=== PATIENT | female | born 1955 | race Hispanic/Latino ===

== ENCOUNTER 2019-02-22 14:53 | Outpatient (CLI) | payer OTHER | END 2019-02-22 14:54 | disposition home or self-care (01) | LOC: LABHHL 14:53 | PROVIDERS: ATTEND Surgery | DX: N63.14 Unspecified lump in the right breast, lower inner quadrant (principal) | CPT/HCPCS: 88112 ==

== ENCOUNTER 2019-03-03 13:00 | Outpatient (CLI) | payer OTHER ==
--- NOTE | 2019-03-04 10:42 | Mammography Report ---
STEREOTACTIC VACUUM ASSISTED BIOPSY WITH CLIP PLACEMENT RIGHT BREAST: 03/03/19 13:00:00 CLINICAL: Right breast mass with calcifications. COMPARISON:02/22/19 mammogram FINDINGS: Consent for the procedure was obtained. The previously described mass with associated calcifications was targeted with stereotactic guidance. The skin was prepped with Betadine and anesthetized with 1% lidocaine. 2% lidocaine with epinephrine was injected for deeper anesthesia. 8 gauge Mammotome biopsy was performed from a medial approach through a small dermatotomy. Prefire and post-fire images demonstrated satisfactory positioning of the probe. Samples were obtained around the clock face. A specimen radiograph confirmed satisfactory sampling with removal of portions of a mass and solar sales representative and assessor calcifications. A moderate amount of hemorrhage was observed at the time of the biopsy. A clip was placed at the biopsy site and the deployment was confirmed with an image. The probe was removed and hemostasis was achieved with pressure to the biopsy site. A sterile dressing with an Jayden wrap was applied. The patient tolerated the procedure well and there were no apparent complications. Two view mammogram demonstrated concordant position of the biopsy clip and apparent removal of at least some calcifications and at least portions of the nodule. IMPRESSION: Uncomplicated stereotactic biopsy with clip placement right breast.
--- NOTE | 2019-03-04 10:44 | Mammography Report ---
RIGHT DIGITAL DIAGNOSTIC MAMMOGRAM: 03/03/19 13:00:00 CLINICAL: For clip placement immediately status post stereotactic biopsy. COMPARISON:02/22/19 FINDINGS: A biopsy clip is now identified at the site of the previously identified nodule and calcifications.A small hemorrhage is apparent on the lateral view. No distinct nodule remains and some if not all of the calcifications have been removed. IMPRESSION: Concordant clip placement status post stereotactic biopsy. BI-RADS CATEGORY: 4--Suspicious Pathology pending.
== END 2019-03-03 13:01 | disposition home or self-care (01) ==
LOC: SPVWC 13:00
PROVIDERS: ATTEND Surgery
DX: N60.91 Unspecified benign mammary dysplasia of right breast (principal); N60.11 Diffuse cystic mastopathy of right breast; N64.1 Fat necrosis of breast; R92.1 Mammographic calcification found on diagnostic imaging of breast
CPT/HCPCS: 19081; 77065; 88305; 88342; A4648

== ENCOUNTER 2019-04-06 06:23 | Day surgery (SDC) | payer OTHER ==
[~2019-04-06 06:23] MED LIST: ANCEF/STERILE WATER 2 GM/20 ML 2 GM/20 ML SYRINGE IV NR
[2019-04-06] MEDS ORDERED: NACL BACTERIOSTATIC INFILTRATI ONE (06:39)
--- NOTE | 2019-04-06 07:25 | Anesthesia Consultation ---
Anesthesia Consult and Med Hx Date of service: 04/06/19 - Airway Anesthetic Teeth Evaluation: Good ROM Head & Neck: Adequate Mental/Hyoid Distance: Adequate Mallampati Class: Class II Intubation Access Assessment: Probably Good - Pulmonary Exam CTA: Yes - Cardiac Exam Cardiac Exam: RRR - Pre-Operative Health Status ASA Pre-Surgery Classification: ASA3 Proposed Anesthetic Plan: General - Pulmonary Hx Smoking: Yes (wakes up with cough every morning; ordered albuterol neb) Hx Asthma: No Hx Respiratory Symptoms: Yes SOB: No COPD: No Home Oxygen Therapy: No Hx Sleep Apnea: No - Cardiovascular System Hx Hypertension: Yes Hx Coronary Artery Disease: No Hx Cardia Arrhythmia: No Hx Peripheral Vascular Disease: No - Central Nervous System Hx Neuromuscular Disorder: No Hx Seizures: No Hx Back Pain: No Hx Psychiatric Problems: No - Gastrointestinal Hx Gastroesophageal Reflux Disease: No - Endocrine Hx Renal Disease: No Hx Liver Disease: No Hx Insulin Dependent Diabetes: No Hx Non-Insulin Dependent Diabetes: Yes ("prediabetic, diet-controlled" ) Hx Thyroid Disease: No - Hematic Hx Anemia: No - Other Systems Hx Alcohol Use: No Hx Substance Use: No Hx Obesity: Yes - Additional Comments Anesthesia Medical History Comments: No GAC, No FHAC
[2019-04-06] MEDS ORDERED: VERSED IV NR (07:26)
--- NOTE | 2019-04-06 07:26 | Anesthesia Day of Surgery ---
Anesthesia Day of Surgery - Day of Surgery Patient Examined: Yes Patient H&P Reviewed: Yes Patient is NPO: Yes ([id number]) Beta Blockers: No Cardiac Clearance: No Pulmonary Clearance: No
[2019-04-06] MEDS ORDERED: PROVENTIL IH NR (07:30)
[2019-04-06] MEDS ORDERED: DILAUDID IV PRN (07:33)
[2019-04-06] MEDS ORDERED: XYLOCAINE 1% 20 mL ONE (07:46)
[2019-04-06] MEDS ORDERED: LACTATED RINGERS 1,000 ML IV SCH (08:00)
[2019-04-06] MEDS ORDERED: XYLOCAINE 1% 20 mL INFILTRATI ONE ×2 (08:51→09:44)
[2019-04-06] MEDS ORDERED: DIPRIVAN 10 MG/ML IV ONE (09:00)
[2019-04-06] MEDS ORDERED: SUBLIMAZE ONE (09:00)
--- NOTE | 2019-04-06 09:02 | Mammography Report ---
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 COMPARISON: 03/03/19 FINDINGS: Using mammographic guidance, 1% lidocaine local anesthesia and sterile technique, a 3.5-cm Hackett needle with a hookwire was placed from a medial approach to localize a biopsy clip. The hookwire was deployed and the needle was removed. Satisfactory placement was confirmed by orthogonal views. The patient tolerated the procedure well and there were no apparent complications. IMPRESSION: Uncomplicated hookwire placement right breast.
[2019-04-06] MEDS ORDERED: WATER FOR IRRIG STERILE IR ONE (09:44)
[2019-04-06] MEDS ORDERED: MARCAINE 0.25% INFILTRATI ONE (09:44)
[2019-04-06] MEDS ORDERED: XYLOCAINE MPF 2% ONE (10:27)
[2019-04-06] MEDS ORDERED: ZOFRAN ONE (10:27)
[2019-04-06] MEDS ORDERED: DECADRON ONE (10:27)
--- NOTE | 2019-04-06 11:13 | Short Stay Summary ---
Short Stay Documentation Date of service: 04/06/19 - History H&P: obtained from office - Allergies and Medications Current Medications: Allergies meperidine [From Demerol] Allergy (Verified 04/02/19 14:33) Unknown ofloxacin [From Floxin] Allergy (Verified 04/02/19 14:33) Unknown Home Medications Medication Instructions Recorded Confirmed Last Taken Type Aspirin EC 81 mg PO QDAY 04/02/19 04/06/19 1 Month Ago History ~03/07/19 Chlorthalidone [Thalitone] 25 mg PO QDAY 04/02/19 04/02/19 04/05/19 History FLUoxetine [PROzac] 20 mg PO QDAY 04/02/19 04/02/19 04/05/19 History Fenofibrate [Tricor] 145 mg PO QDAY 04/02/19 04/02/19 04/05/19 History Levothyroxine [Synthroid] 50 mcg PO QAM 04/02/19 04/02/19 04/05/19 History Rosuvastatin Calcium [Crestor] 20 mg PO QHS 04/02/19 04/02/19 04/05/19 History buPROPion SR [Wellbutrin Sr] 150 mg PO BID 04/02/19 04/02/19 04/05/19 History HYDROcodone/APAP 5-325 [[place] 1 each PO Q6HR PRN #20 tablet 04/06/19 Unknown Rx 5/325] Active Medications Albuterol (Proventil) 2.5 mg IH PREOP NR Stop: 04/06/19 16:00 Last Admin: 04/06/19 08:24 Dose: 2.5 mg Documented by: Hydromorphone HCl (Dilaudid) 0.5 mg IV Q10MIN PRN PRN Reason: Pain , Severe (7-10) Stop: 04/06/19 16:00 Cefazolin Sodium (Ancef/Sterile Water 2 Gm/20 Ml) 2 gm in 20 mls @ 80 mls/hr IV PREOP NR; Protocol Stop: 04/06/19 23:59 Lactated Ringer's (Lactated Ringers) 1,000 mls @ 100 mls/hr IV DIRECT INDIRA Last Admin: 04/06/19 08:27 Dose: 100 mls/hr Documented by: Midazolam HCl (Versed) 2 mg IV ONCE NR Stop: 04/06/19 16:00 Last Admin: 04/06/19 08:38 Dose: 2 mg Documented by: - Brief post op/procedure progress note Date of procedure: 04/06/19 Pre-op diagnosis: Right breast ADH Post-op diagnosis: same Procedure: Right needle localization excisional biopsy Anesthesia: GETA Findings: wire and clip present Surgeon: ASAEL RICE Estimated blood loss: minimal Pathology: list (right breast mass) Specimen disposition: to lab Condition: stable - Disposition Condition at discharge: Good Disposition: DC- TO HOME OR SELFCARE Short Stay Discharge Plan Activity: other (no heavy lifting) Diet: regular Wound: keep clean and dry (may shower in 48 hours; no baths, pools or lakes; do not rub or scrub incision) Follow up with: HAKAN SYLVESTER MD [Primary Care Provider] - 7 Days ASAEL RICE MD [Staff Physician] - 7 Days Prescriptions: HYDROcodone/APAP 5-325 [[place] 5/325] 1 each PO Q6HR PRN #20 tablet PRN Reason: Pain
--- NOTE | 2019-04-06 11:18 | Operative Report ---
Operative Report Operative Report: Operative Report: Date of Service: April 06, 2019 Preoperative diagnosis: Right breast mass with ADH Postoperative diagnosis: Same Procedure: Right breast mass excisional biopsy Anesthesia: General Surgeon: Monie No M.D. Findings: Right breast excisional biopsy with clip and wire present Complications: None Drains: None Estimated blood loss: Minimal Disposition: PACU in good condition Indication for operative procedure: This is a 63-year-old lady with recent abn ormal right mammogram and breast MRI. RPatient also high risk for breast cancer given family history. Recent stereotactic biopsy with findings of ADH. Recommendations are for excisional biopsy to rule out malignancy. Patient wished to proceed with the above procedure. The patient was procedure in detail: Radiology placed wire at location of clip placement. The patient was taken to the operating room and was laid supine. General anesthesia was administered. The right breast wire was identified. The right breast was prepped and draped in the normal sterile operative fashion. Timeout was performed. A breast incision around the 3:00 position was made with a 15 blade knife with dissection taken down to the subcutaneous tissues. The wire was removed medially from the skin. The medial was then raised taken down posteriorly followed by raising of the lateral, superior and inferior flaps with dissection taken down posteriorly. The area of concern was then removed posteriorly with the aid of the bovie cautery. The area of concern was not encountered. The specimen was sent to pathology and radiology. Radiograph specimen with clip and wire present. Hemostasis was then obtained using the Bovie cautery. The breast cavity was irrigated and suctioned. The deep breast tissues were approximated and closed using interrupted 3-0 Vicryl and skin brought together and closed using a running 4-0 Monocryl followed by skin affix.
[2019-04-06 12:02] VITALS: BP 126/68
[2019-04-06] MEDS ORDERED: NORCO 5/325 PO PRN (12:30)
--- NOTE | 2019-04-06 12:30 | Mammography Report ---
SPECIMEN RADIOGRAPH RIGHT BREAST: 04/06/19 06:23:00 CLINICAL: Surgical excision of a lesion with atypia. FINDINGS: The targeted lesion with a biopsy clip and a hookwire are identified within the specimen. IMPRESSION: Excision of the targeted lesion.
== END 2019-04-06 12:40 | disposition home or self-care (01) ==
LOC: OR 06:23
PROVIDERS: ATTEND Surgery
DX: D05.11 Intraductal carcinoma in situ of right breast (principal); D24.1 Benign neoplasm of right breast; E78.00 Pure hypercholesterolemia, unspecified; I10 Essential (primary) hypertension; E66.9 Obesity, unspecified; E11.9 Type 2 diabetes mellitus without complications; Z68.34 Body mass index [BMI] 34.0-34.9, adult; Z90.710 Acquired absence of both cervix and uterus; Z87.442 Personal history of urinary calculi; Z98.890 Other specified postprocedural states; Z80.3 Family history of malignant neoplasm of breast; Z87.891 Personal history of nicotine dependence; Z79.82 Long term (current) use of aspirin; Z80.8 Family history of malignant neoplasm of other organs or systems; Z88.8 Allergy status to other drugs, medicaments and biological substances
CPT/HCPCS: 19125; 19281; 76098; 82962; 88307; 88341; 88342; J0690; J1100; J2250; J2405; J2704; J3010; J7120

== ENCOUNTER 2019-04-28 06:02 | Day surgery (SDC) | payer OTHER ==
[2019-04-27 09:34] LABS: Basophils # (Auto) 0.1 K/mm3 (0.0-0.1); Basophils % (Auto) 1.2 % (0.0-1.8); Eosinophils # (Auto) 0.1 K/mm3 (0.0-0.4); Eosinophils % (Auto) 1.7 % (0.0-4.3); Hematocrit 39.2 % (30.3-42.9); Hemoglobin 13.3 gm/dl (10.1-14.3); Lymphocytes # (Auto) 2.7 K/mm3 (1.2-5.4); Lymphocytes % (Auto) 43.7 % (13.4-35.0); Mean Corpuscular HGB Conc 34 % (30-34); Mean Corpuscular Volume 86 fl (79-97); Monocytes # (Auto) 0.6 K/mm3 (0.0-0.8); Monocytes % (Auto) 9.3 % (0.0-7.3); Platelet Count 242 K/mm3 (140-440); Red Blood Count 4.58 M/mm3 (3.65-5.03)
--- NOTE | 2019-04-27 09:39 | Anesthesia Consultation ---
Anesthesia Consult and Med Hx Date of service: 04/27/19 - Airway Anesthetic Teeth Evaluation: Good ROM Head & Neck: Adequate Mental/Hyoid Distance: Adequate Mallampati Class: Class II Intubation Access Assessment: Probably Good - Pulmonary Exam CTA: Yes - Cardiac Exam Cardiac Exam: RRR - Pre-Operative Health Status ASA Pre-Surgery Classification: ASA3 Proposed Anesthetic Plan: General Nerve Block: PEC block - Pulmonary Hx Smoking: Yes (FOR OVER 30 YRS; QUIT 2014) Hx Asthma: No Hx Respiratory Symptoms: No COPD: No Hx Sleep Apnea: No - Cardiovascular System Hx Hypertension: Yes Hx Heart Attack/AMI: No Hx Percutaneous Transluminal Coronary Angioplasty (PTCA): No Hx Cardia Arrhythmia: No Hx Peripheral Vascular Disease: No - Central Nervous System Hx Seizures: No CVA: No Hx Psychiatric Problems: Yes (depression) - Gastrointestinal Hx Gastroesophageal Reflux Disease: No - Endocrine Hx Renal Disease: No Hx Liver Disease: No Hx Insulin Dependent Diabetes: No Hx Non-Insulin Dependent Diabetes: Yes (diet controlled; pre-diabetic) Hx Thyroid Disease: No - Hematic Hx Anemia: No - Other Systems Hx Alcohol Use: No Hx Substance Use: No Hx Cancer: Yes (breast Ca) Hx Obesity: Yes - Additional Comments Anesthesia Medical History Comments: No hx anesthetic complications. Consented for preop PEC block pending discussion with surgeon regarding extent of planned procedure.
[2019-04-27 09:46] LABS: BUN/Creatinine Ratio 24; Blood Urea Nitrogen 17 mg/dL (7-17); Calcium 9.3 mg/dL (8.4-10.2); Hemolysis Index 9
[~2019-04-28 06:02] MED LIST changes: -ANCEF/STERILE WATER 2 GM/20 ML 2 GM/20 ML SYRINGE IV NR; +LACTATED RINGERS 1,000 ML IV SCH; +NEURONTIN PO NR; +SUBLIMAZE IV PRN; +VERSED IV NR
[2019-04-28] MEDS ORDERED: NACL BACTERIOSTATIC INFILTRATI ONE (06:20)
[2019-04-28] MEDS ORDERED: ANCEF/STERILE WATER 2 GM/20 ML IV NR (07:00)
[2019-04-28] MEDS ORDERED: DECADRON ONE (07:28)
[2019-04-28] MEDS ORDERED: MARCAINE 0.5% INFILTRATI ONE (07:28)
[2019-04-28] MEDS ORDERED: DILAUDID IV PRN (07:29)
--- NOTE | 2019-04-28 07:29 | Anesthesia Day of Surgery ---
Anesthesia Day of Surgery - Day of Surgery Patient Examined: Yes Patient H&P Reviewed: Yes Patient is NPO: Yes
[2019-04-28] MEDS ORDERED: ZOFRAN ONE (07:36)
[2019-04-28] MEDS ORDERED: DIPRIVAN 10 MG/ML IV ONE (07:36)
[2019-04-28] MEDS ORDERED: SUBLIMAZE ONE (07:36)
[2019-04-28] MEDS ORDERED: ZEMURON IV ONE (07:36)
[2019-04-28] MEDS ORDERED: WATER FOR IRRIG STERILE IR ONE (08:43)
[2019-04-28] MEDS ORDERED: ROBINUL ONE (08:58)
--- NOTE | 2019-04-28 09:15 | Operative Report ---
Operative Report Operative Report: Operative Report: Date of Service: April 28, 2019 Preoperative diagnosis: Right breast cancer of the upper inner quadrant Postoperative diagnosis: Same Procedure: Right anterior margin revision Surgeon: Monie No M.D. Anesthesia: Gen. Findings: Right anterior margin revision Complications: None Drains: None Estimated blood loss: Minimal Disposition: PACU in good condition Indications for operative procedure: This is a 63-year-old lady with newly diagnosed right breast cancer, Stage 0 [id number] ER/MO positive of the upper inner quadrant, [id number] ER/MO positive. She recently underewent and excisional biopsy for ADH with final pathology findings of DCIS with anterior margin less than 0.5 mm from cancer and remaining margins greater than 10 mm. Recommendations are to proceed with right breast margin revision. Patient agrees to the above procedure and understands the role of anti-hormonal therapy and radiation therapy. Procedure in detail: Anesthesia placed right pectoral muscle block prior to going to the operating room. The patient was taken to the operating room and was placed supine. Gen. anesthesia was administered. Right breast was prepped and draped in the normal operative fashion. Right breast incision was noted at the 3:00 position. An elliptical incision was made encompassing the prior incision. A skin incision was made with a 15 blade knife with disection taken down to the subcutaneous tissues. Seroma was encountered and suctioned. The skin was excised using the Bovie Cautery. Specimen was marked and then sent to pathology. Hemostasis was obtained. The subcutaneous tissues were closed using interrupted 3-0 vicryl and skin closing using running 4-0 Monocryl and dermabond. She tolerated surgery very well and was awaken from anesthesia and transported to PACU in good conidition.
--- NOTE | 2019-04-28 09:18 | Short Stay Summary ---
Short Stay Documentation Date of service: 04/28/19 - History H&P: obtained from office - Allergies and Medications Current Medications: Allergies meperidine [From Demerol] Allergy (Verified 04/23/19 11:51) Itching ofloxacin [From Floxin] Allergy (Verified 04/23/19 11:51) Hives Home Medications Medication Instructions Recorded Confirmed Last Taken Type Aspirin EC 81 mg PO QDAY 04/02/19 04/23/19 03/10/19 History Chlorthalidone [Thalitone] 25 mg PO QDAY 04/02/19 04/23/19 04/27/19 History FLUoxetine [PROzac] 20 mg PO QDAY 04/02/19 04/23/19 04/27/19 History Fenofibrate [Tricor] 145 mg PO QDAY 04/02/19 04/23/19 04/27/19 History Levothyroxine [Synthroid] 50 mcg PO QAM 04/02/19 04/23/19 04/27/19 History Rosuvastatin Calcium [Crestor] 20 mg PO QHS 04/02/19 04/23/19 04/27/19 History buPROPion SR [Wellbutrin Sr] 150 mg PO BID 04/02/19 04/23/19 04/27/19 History HYDROcodone/APAP 5-325 [[place] 1 each PO Q6HR PRN #20 tablet 04/06/19 04/23/19 04/06/19 Rx 5/325] HYDROcodone/APAP 5-325 [[place] 1 each PO Q6HR PRN #15 tablet 04/28/19 Unknown Rx 5/325] Active Medications Cefazolin Sodium (Ancef/Sterile Water 2 Gm/20 Ml) 2 gm IV PREOP NR Stop: 04/28/19 23:45 Celecoxib (Celebrex) 200 mg PO PREOP NR Stop: 04/28/19 23:59 Last Admin: 04/28/19 06:30 Dose: 200 mg Documented by: Fentanyl (Sublimaze) 100 mcg IV ONCE PRN PRN Reason: sedation for nerve block Stop: 04/28/19 23:59 Last Admin: 04/28/19 07:35 Dose: 100 mcg Documented by: Gabapentin (Neurontin) 300 mg PO PREOP NR Stop: 04/28/19 23:59 Last Admin: 04/28/19 06:30 Dose: 300 mg Documented by: Hydromorphone HCl (Dilaudid) 0.5 mg IV Q10MIN PRN PRN Reason: Pain , Severe (7-10) Stop: 04/28/19 20:00 Lactated Ringer's (Lactated Ringers) 1,000 mls @ 100 mls/hr IV DIRECT INDIRA Last Admin: 04/28/19 06:50 Dose: 100 mls/hr Documented by: Midazolam HCl (Versed) 2 mg IV PREOP NR Stop: 04/28/19 23:59 Last Admin: 04/28/19 07:35 Dose: 2 mg Documented by: - Brief post op/procedure progress note Date of procedure: 04/28/19 Pre-op diagnosis: right breast cancer with positive anterior margin Post-op diagnosis: same Procedure: right anterior margin revision Anesthesia: GETA Findings: anterior margin revision Surgeon: ASAEL RICE Estimated blood loss: minimal Pathology: list (anterior margin) Specimen disposition: to lab Condition: stable - Disposition Condition at discharge: Good Disposition: DC-01 TO HOME OR SELFCARE Short Stay Discharge Plan Activity: other (no heavy lifting) Diet: regular Wound: keep clean and dry (may shower in 48 hours) Follow up with: HAKAN SYLVESTER MD [Primary Care Provider] - 7 Days ASAEL RICE MD [Staff Physician] - 7 Days Prescriptions: HYDROcodone/APAP 5-325 [[place] 5/325] 1 each PO Q6HR PRN #15 tablet PRN Reason: Pain
[2019-04-28 10:21] VITALS: BP 134/71
--- NOTE | 2019-04-28 16:40 | Post Anesthesia Evaluation ---
- Post Anesthesia Evaluation Patient Participated: Yes Airway Patent: Yes Stable Respiratory Function: Yes Nausea/Vomiting: No Temp > 96.8F: Yes Pain Manageable: Yes Adequeate Hydration: Yes Anesthesia Complications: No
== END 2019-04-28 06:03 | disposition home or self-care (01) ==
LOC: OR 06:02
PROVIDERS: ATTEND Surgery
DX: C50.211 Malignant neoplasm of upper-inner quadrant of right female breast (principal); E78.00 Pure hypercholesterolemia, unspecified; I10 Essential (primary) hypertension; E66.9 Obesity, unspecified; E11.9 Type 2 diabetes mellitus without complications; F32.9 Major depressive disorder, single episode, unspecified; F41.9 Anxiety disorder, unspecified; Z98.890 Other specified postprocedural states; Z80.3 Family history of malignant neoplasm of breast; Z90.49 Acquired absence of other specified parts of digestive tract; Z90.710 Acquired absence of both cervix and uterus; Z98.891 History of uterine scar from previous surgery; Z87.442 Personal history of urinary calculi; Z79.899 Other long term (current) drug therapy; Z79.82 Long term (current) use of aspirin; Z87.891 Personal history of nicotine dependence; Z88.8 Allergy status to other drugs, medicaments and biological substances
CPT/HCPCS: 19301; 36415; 64450; 80048; 82962; 85025; 88307; J0690; J1100; J2250; J2405; J2704; J3010; J7120

== ENCOUNTER 2020-12-27 10:47 | Outpatient (CLI) | payer OTHER ==
--- NOTE | 2020-12-27 14:12 | Magnetic Resonance Report ---
MRI BREAST BILATERAL WITH AND WITHOUT CONTRAST, 12/27/2020 CLINICAL INFORMATION / INDICATION: PERSONAL HISTORY OF BREAST CA Z85.3. Patient has history of right breast core needle biopsy demonstrating atypical ductal hyperplasia status post surgical excision in 2019, with final pathology demonstrating DCIS. TECHNIQUE: Axial T1 and T2-weighted fat sat images were obtained precontrast. Gadolinium-based contra st was injected intravenously and serial axial T1 weighted images with fat saturation were obtained. 3-D MIP projections, kinetic analysis, and subtraction imaging were utilized to evaluate. A dedicated 8-channel breast coil was used for image acquisition. COMPARISON: Prior mammogram 04/27/2020 FINDINGS: BREAST DENSITY: There are scattered areas of fibroglandular density. BACKGROUND ENHANCEMENT: Moderate background enhancement within both breasts. RIGHT BREAST: No dominant mass or suspicious area of enhancement in the right breast. Benign postsurg ical change is seen in the medial right breast. LEFT BREAST: No dominant mass or suspicious area of enhancement in the left breast. AXILLAE: No pathologically enlarged axillary lymph nodes. ADDITIONAL FINDINGS: Limited imaging of the thorax and upper abdomen demonstrates no focal abnormalit y. IMPRESSION: 1. Benign postsurgical change is seen in the right breast. No suspicious MRI abnormality identified i n either breast. Follow up recommendation: Back to schedule. BI-RADS Category 2: Benign. Signer Name: Olena Tirado MD Signed: 12/27/2020 2:07 PM Workstation Name: [id number]
== END 2020-12-27 10:48 | disposition home or self-care (01) ==
LOC: SPVIMAG 10:47
PROVIDERS: ATTEND Surgery
DX: R92.2 Inconclusive mammogram (principal); Z85.3 Personal history of malignant neoplasm of breast
CPT/HCPCS: A9577; C8908; 77049

== ENCOUNTER 2021-04-30 08:37 | Outpatient (CLI) | payer OTHER ==
--- NOTE | 2021-04-30 10:17 | Mammography Report ---
DIGITAL SCREENING MAMMOGRAM WITH CAD, 04/30/2021 INDICATION: Routine screening mammography. TECHNIQUE: Digital bilateral 2D mammography was obtained in the craniocaudal and mediolateral obliq ue projections. This examination was interpreted with the benefit of Computer-Aided Detection analysi s. COMPARISON: 01/27/2019. FINDINGS: Breast Density: There are scattered areas of fibroglandular density. There is no evidence of dominant mass, suspicious calcifications or architectural distortion in eithe r breast. IMPRESSION: Follow up recommendation: Routine yearly BI-RADS Category 1: Negative. A "normal" or negative report should not discourage follow up or biopsy of a clinically significant f inding. A written summary of these findings will be mailed to the patient. The patient will be entered into a mammography reporting system which will generate a reminder letter for the patient's next appointmen t at the appropriate interval. The [employer] recommends yearly mammograms starting at age 40 and continuing as l telma as a woman is in good health. Breast MRI is recommended for women with an approximate 20-25% or greater lifetime risk of breast cancer, including women with a strong family history of breast or ova osmany cancer or who have been treated for Hodgkin's disease. Signer Name: Quinn Young MD Signed: 04/30/2021 10:13 AM Workstation Name: [employer]
== END 2021-04-30 08:38 | disposition home or self-care (01) ==
LOC: SPVWC 08:37
PROVIDERS: ATTEND Surgery
DX: Z12.31 Encounter for screening mammogram for malignant neoplasm of breast (principal)
CPT/HCPCS: 77067